=== PATIENT | male | born 1960 | race Caucasian/White ===

== ENCOUNTER 2017-02-28 13:21 | Emergency (ER) | payer OTHER ==
[2017-02-28] MEDS ORDERED: ONDANSETRON 4 MG ODT TAB ONE (14:11)
== END 2017-02-28 15:54 | disposition home or self-care (01) ==
LOC: ED 13:21
DX: R19.7 Diarrhea, unspecified (principal); R11.10 Vomiting, unspecified; R53.81 Other malaise; I10 Essential (primary) hypertension; F17.210 Nicotine dependence, cigarettes, uncomplicated
CPT/HCPCS: 99283 ×2; 82962; A9270